=== PATIENT | male | born 2000 ===

== ENCOUNTER 2023-03-17 19:10 | Emergency (ER) | payer SELFPAY ==
[2023-03-17] MEDS ORDERED: GI Cocktail Oral Solution 30 ML PO ONE (19:21)
[2023-03-17] MEDS ORDERED: Sodium Chloride 0.9% 10 ML Syringe FLUSH PRN (19:23)
[2023-03-17 19:38] LABS: BASOPHILS ABSOLUTE AUTO 0.03 K/uL (0.02-0.10); BASOPHILS PERCENT AUTO 0.5 % (0.0-0.5); EOSINOPHILS ABSOLUTE AUTO 0.12 K/uL (0.04-0.40); HEMATOCRIT 42.3 % (40.0-54.0); LYMPHOCYTES ABSOLUTE AUTO 1.87 K/uL (1.50-4.00); LYMPHOCYTES PERCENT AUTO 30.8 % (20.0-40.0); MEAN CORPUSCULAR HEMOGLOBIN 30.2 pg (27.0-32.0); MEAN CORPUSCULAR HGB CONC 35.5 g/dL (31.0-35.0); MEAN CORPUSCULAR VOLUME 85 fL (76-96); MEAN PLATELET VOLUME 10.6 fL (6.0-10.0); MONOCYTES ABSOLUTE AUTO 0.38 K/uL (0.20-0.80); MONOCYTES PERCENT AUTO 6.3 % (3.0-10.0); NEUTROPHILS ABSOLUTE AUTO 3.68 K/uL (2.00-7.50); NEUTROPHILS PERCENT AUTO 60.4 % (45.0-70.0); PLATELET COUNT,PLT 199 K/uL (150-400); RED BLOOD CELL COUNT 4.97 M/uL (4.50-6.50); RED CELL DISTRIBUTION WIDTH 12.9 % (11.0-16.0); WHITE BLOOD CELL COUNT,WBC 6.1 K/uL (4.0-11.0)
[2023-03-17] MEDS ORDERED: Famotidine 20 MG Tab PO ONE (19:55)
[2023-03-17 20:01] LABS: A/G RATIO 1.3 (0.8-2.0); ALBUMIN 4.4 g/dL (3.4-5.0); ANION GAP 12.3 mmol/L (5.0-15.0); BILIRUBIN TOTAL 0.2 mg/dL (0.0-1.0); BUN/CREATININE RATIO 15.9 (6-25); CARBON DIOXIDE,CO2 30.3 mmol/L (21.0-32.0); CREATININE 1.26 mg/dL (0.70-1.30); EST CRCL DRUG DOSING (CG) 88.97 mL/min; POTASSIUM,K 3.6 mmol/L (3.5-5.1); PROTEIN TOTAL,TP 7.8 g/dL (6.4-8.2); TROPONIN I HIGH SENSITIVITY 4.3 pg/ml (<=60.4)
== END 2023-03-17 20:15 | disposition home or self-care (01) ==
LOC: LB.ED 19:10
DX: R07.89 Other chest pain (principal); R74.01 Elevation of levels of liver transaminase levels; F10.929 Alcohol use, unspecified with intoxication, unspecified; F15.90 Other stimulant use, unspecified, uncomplicated
CPT/HCPCS: 36415; 80053; 80307; 84484; 85025; 93005; 99285; A9270